=== PATIENT | male | born 1990 | race Two or more races ===

== ENCOUNTER 2025-07-12 11:24 | Emergency (ER) | payer OTHER, SELFPAY ==
[2025-07-12 11:46] VITALS: BP 119/55; PULSE 70; RESP 18; TEMP 36.6; O2SAT 100
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
== END 2025-07-12 12:42 | disposition home or self-care (01) ==
PROVIDERS: Emergency Provider Nurse Practitioner
DX: S16.1XXA Strain of muscle, fascia and tendon at neck level, initial encounter (principal); S46.912A Strain of unspecified muscle, fascia and tendon at shoulder and upper arm level, left arm, initial encounter; V89.2XXA Person injured in unspecified motor-vehicle accident, traffic, initial encounter
CPT/HCPCS: 99203; G0463

== ENCOUNTER 2025-07-14 09:01 | Emergency (ER) | payer OTHER, SELFPAY ==
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
[2025-07-14 09:06] VITALS: BP 107/65; PULSE 55; RESP 20; TEMP 36.6; O2SAT 100
== END 2025-07-14 09:34 | disposition home or self-care (01) ==
PROVIDERS: Emergency Provider Nurse Practitioner Family
DX: S16.1XXA Strain of muscle, fascia and tendon at neck level, initial encounter (principal); V49.40XA Driver injured in collision with unspecified motor vehicles in traffic accident, initial encounter; S46.811A Strain of other muscles, fascia and tendons at shoulder and upper arm level, right arm, initial encounter
CPT/HCPCS: 72040; 99213; G0463